=== PATIENT | female | born 1995 | race Caucasian/White ===

== ENCOUNTER 2022-07-23 06:25 | Inpatient (IN) | payer MEDICAID ==
[2022-07-23] MEDS ORDERED: Nalbuphine 20 MG/1 ML Amp IM ONE (08:24)
[2022-07-23] MEDS ORDERED: Ondansetron 4 MG/2 ML SDV IVPUSH PRN (08:36)
[2022-07-23] MEDS ORDERED: Nalbuphine 20 MG/1 ML Amp IM PRN (08:36)
[2022-07-23] MEDS ORDERED: Methylergonovine 0.2 MG/1 ML Amp IM PRN (08:36)
[2022-07-23] MEDS ORDERED: Acetaminophen 325 MG Tab PO PRN ×2 (08:36→14:46)
[2022-07-23] MEDS ORDERED: Sodium Chloride 0.9% 10 ML Syringe FLUSH PRN (08:36)
[2022-07-23] MEDS ORDERED: Lidocaine 1% 10 ML MDV INJECT PRN (08:36)
[2022-07-23] MEDS ORDERED: fentaNYL 100 MCG/2 ML SDV IVPUSH PRN (08:36)
[2022-07-23] MEDS ORDERED: Carboprost Tromethamine 250 MCG/1 ML Amp IM PRN (08:36)
[2022-07-23] MEDS ORDERED: Misoprostol 400 MCG (4 X 100 MCG TAB) RECTAL PRN (08:36)
[2022-07-23] MEDS ORDERED: Lactated Ringers 1,000 ML IV ONE (08:36)
[2022-07-23] MEDS ORDERED: Morphine PF 10 MG/10 ML SDV IT ONE (08:37)
[2022-07-23] MEDS ORDERED: Dexmedetomidine 200 MCG/2 ML SDV IT ONE (08:37)
[2022-07-23] MEDS ORDERED: Oxytocin/Normal Saline 30 UNIT/500 ML BAG IV SCH (08:45)
[2022-07-23] MEDS ORDERED: Lactated Ringers 1,000 ML IV SCH (08:45)
[2022-07-23] MEDS ORDERED: Morphine PF 10 MG/10 ML SDV ONE (10:36)
[2022-07-23] MEDS ORDERED: Tranexamic Acid 1,000 MG in Sodium Chloride 0.9% 100 ML IV PRN (14:46)
[2022-07-23] MEDS ORDERED: Simethicone 80 MG Tab.Chew PO PRN (14:46)
[2022-07-23] MEDS ORDERED: Oxytocin 10 Units/1 ML SDV IM PRN (14:46)
[2022-07-23] MEDS ORDERED: Benzocaine/Menthol 20%-0.5% Spray 78 GM Cannister TOP PRN (14:46)
[2022-07-24] MEDS: Prenatal Multivitamin with Calcium/Folic Acid/Iron Tab PO SCH (12:26)
[2022-07-24] MEDS: Ibuprofen 800 MG Tab PO PRN (12:27)
[2022-07-25] MEDS: Docusate Sodium 100 MG Cap PO PRN ×2 (02:08→08:34)
[2022-07-25] MEDS: Ibuprofen 800 MG Tab PO PRN (02:08)
[2022-07-25] MEDS: Prenatal Multivitamin with Calcium/Folic Acid/Iron Tab PO SCH (08:34)
== END 2022-07-25 14:15 | disposition home or self-care (01) | DRG 807 ==
LOC: DL.OBCHECK 06:25 → DL.OB 07:53 → UNDOADMOB 07:53 → DL.OB 08:36 → OBSVTOIN 13:50 → DL.OB 13:50
PROVIDERS: ADMIT Family Medicine; ATTEND Family Medicine
PROC: 3E0P7VZ Introduction of Hormone into Female Reproductive, Via Natural or Artificial Opening (ICD-10-PCS; principal; 2022-07-23)
PROC: 10E0XZZ Delivery of Products of Conception, External Approach (ICD-10-PCS; 2022-07-23)
PROC: 00HU33Z Insertion of Infusion Device into Spinal Canal, Percutaneous Approach (ICD-10-PCS; 2022-07-23)
PROC: 3E0R3BZ Introduction of Anesthetic Agent into Spinal Canal, Percutaneous Approach (ICD-10-PCS; 2022-07-23)
PROC: 0HQ9XZZ Repair Perineum Skin, External Approach (ICD-10-PCS; 2022-07-23)
DX: O99.02 Anemia complicating childbirth (principal); Z37.0 Single live birth; D64.9 Anemia, unspecified; Z3A.37 37 weeks gestation of pregnancy; Z20.822 Contact with and (suspected) exposure to COVID-19; O70.0 First degree perineal laceration during delivery
CPT/HCPCS: 36415; 59025; 59409; 62320; 85025; A9270-GY; J2270; J2300; J2405; J2590; J3490; J7120; U0002